=== PATIENT | female | born 1940 | race Caucasian/White ===

== ENCOUNTER 2019-01-26 14:33 | Emergency (ER) | payer MEDICARE ==
[2019-01-26] MEDS ORDERED: Lidocaine 2% with EPINEPHrine 1:100,000 20 ML MDV INJECT ONE (15:10)
--- NOTE | 2019-01-26 15:37 | EDM.PDOC ---
ED HPI GENERAL MEDICAL PROBLEM - General Chief Complaint: Head Injury Stated Complaint: head laceration Time Seen by Provider: 01/26/19 14:45 Source of Information: Reports: Patient History Limitations: Reports: No Limitations - History of Present Illness INITIAL COMMENTS - FREE TEXT/NARRATIVE: Tripped and fell in the bathroom. Hit forehead against edge of tub Unknown LOC Upon arrival in ER, pt is awake and alert Recalls events Is complaining of large laceration to forehead and headache No other injuries and no other complaints No seizure activity Onset: Today, Sudden Duration: Hour(s): Location: Reports: Head, Face Improves with: Reports: None Worsens with: Reports: None - Related Data Allergies Allergy/AdvReac Type Severity Reaction Status Date / Time red dye Allergy Other Verified 01/26/19 14:35 Home Meds: Home Meds Aspirin [Adult Low Dose Aspirin EC] 81 mg PO DAILY 01/26/19 [History] Cholecalciferol (Vitamin D3) [Vitamin D3] 2,000 unit PO DAILY 01/26/19 [History] Glucosamine HCl [Glucosamine] 1,500 mg PO DAILY 01/26/19 [History] Latanoprost [Xalatan] 1 drop OP BEDTIME 01/26/19 [History] Lisinopril 20 mg PO DAILY 01/26/19 [History] Multivitamin [Daily Multiple Vitamin] 1 each PO DAILY 01/26/19 [History] Simvastatin 20 mg PO BEDTIME 01/26/19 [History] Timolol Maleate [Timoptic 0.5% Opth Soln] 1 drop EYEBOTH DAILY 01/26/19 [History ] hydroCHLOROthiazide [Hydrochlorothiazide] 25 mg PO DAILY 01/26/19 [History] ED ROS GENERAL - Review of Systems Review Of Systems: See Below HEENT: Reports: Other (Forehead laceration) Respiratory: Reports: No Symptoms Cardiovascular: Reports: No Symptoms GI/Abdominal: Reports: No Symptoms Musculoskeletal: Reports: No Symptoms Skin: Reports: Other (Large forehhead laceration) Neurological: Reports: No Symptoms ED EXAM, HEAD INJURY - Physical Exam Exam: See Below Exam Limited By: No Limitations General Appearance: Alert, Mild Distress Head: Facial Ecchymosis (6 cm transverse forehead laceration just above eyebrows across center of forehead Externds full thickness), Facial Lacerations , Raccoon Eyes Eyes: Bilateral Eye: EOMI, PERRL Nose: Normal Inspection Throat/Mouth: Normal Inspection Neck: Non-Tender Neurologic: No Motor/Sensory Deficits, Alert, Oriented x 3, Other (GCS 15) ED LACERATION/WOUND & TEENA PROC - Laceration/Wound Repair Middle Forehead Lac/wound length in cm: 6 Appearance: Irregular Anesthetic Type: Local Local Anesthesia - Lidocaine (Xylocaine): 2% with EPI Local Anesthetic Volume: 5cc Skin Prep: Saline, Other (soap) Exploration/Debridement/Repair: Wound Explored, Explored to Base, Minimal Debridement, Foreign Material Removed, Wound Margins Revised Closed with: Sutures Suture Size: other (5-0) # of Sutures: 9 Suture Type: Nylon Suture Size: other (5-0) # of Sutures: 4 Repaired with: Chromic Tetanus Status Addressed: Yes Complications: No Progress/Comments: Good closure Pt tolerated well Course - Orders/Labs/Meds Orders: Active Orders 24 hr Category Date Time Status Head wo Cont [CT] Stat Exams 01/26/19 14:38 Taken Meds: Medications Discontinued Medications Generic Name Dose Route Start Last Admin Trade Name José PRN Reason Stop Dose Admin Lidocaine HCl 5 ml 01/26/19 15:07 Xylocaine-Mpf 1% INJECT 01/26/19 15:08 ONETIME ONE Lidocaine/Epinephrine 20 ml 01/26/19 15:10 Xylocaine 2% With Epinephrine 1:100,000 INJECT 01/26/19 15:11 ONETIME ONE - Re-Assessments/Exams Free Text/Narrative Re-Assessment/Exam: 01/26/19 15:39 Pt stable in ER 01/26/19 15:42 CT: Negative Departure - Departure Time of Disposition: 16:00 Disposition: Home, Self-Care 01 Clinical Impression: Laceration of forehead without complication Qualifiers: Encounter type: initial encounter Qualified Code(s): S01.81XA - Laceration without foreign body of other part of head, initial encounter - Discharge Information *PRESCRIPTION DRUG MONITORING PROGRAM REVIEWED*: Not Applicable *COPY OF PRESCRIPTION DRUG MONITORING REPORT IN PATIENT MINA: Not Applicable Instructions: Laceration Care, Adult Additional Instructions: Sutures out in 7-10 days Keep wound clean Ice as needed - My Orders Last 24 Hours: My Active Orders 01/26/19 14:38 Head wo Cont [CT] Stat - Assessment/Plan Last 24 Hours: My Active Orders 01/26/19 14:38 Head wo Cont [CT] Stat
[2019-01-26] MEDS ORDERED: Diphtheria,Pertussis(Acell),Tetanus Vaccine 0.5 ML SDV IM ONE (15:43)
== END 2019-01-26 16:25 | disposition home or self-care (01) ==
LOC: LL.ED 14:33
DX: S01.81XA Laceration without foreign body of other part of head, initial encounter (principal); Z23 Encounter for immunization; Z79.899 Other long term (current) drug therapy; Z91.09 Other allergy status, other than to drugs and biological substances; Z79.82 Long term (current) use of aspirin; W01.198A Fall on same level from slipping, tripping and stumbling with subsequent striking against other object, initial encounter
CPT/HCPCS: 12014; 70450; 90471; 90715; 99284-25